=== PATIENT | female | born 1990 | race Asian ===

== ENCOUNTER 2017-05-25 17:19 | Inpatient (IN) | payer OTHER ==
[~2017-05-25] VITALS: Ht 154.9 cm; Wt 55.4 kg
[2017-05-25 17:53] LABS: UA SPECIFIC GRAVITY <=1.005 (1.005-1.035); microscopic required? YES; urine erythrocyte 1+ (NEGATIVE)
[2017-05-25 17:56] LABS: BASOPHIL % 0.2 % (0-2); PLATELET COUNT 242 x10^3mcL (130-400); RED CELL DISTRIBUTION WIDTH 12.2 % (11.5-14.5)
[2017-05-25 18:01] LABS: CALCIUM 7.9 mg/dL (8.5-10.1); CARBON DIOXIDE 21.1 mmol/L (21-32); CHLORIDE SERUM 102 mmol/L (98-107); GFR1 > 60 mL/min; GLUCOSE SERUM 127 mg/dL (74-106); POTASSIUM SERUM 3.5 mmol/L (3.5-5.1); SODIUM SERUM 137 mmol/L (136-145)
[2017-05-25 18:07] LABS: ALBUMIN 3.6 g/dL (3.4-5.0); ALKALINE PHOSPHATASE 59 U/L (46-116); ALT/SGPT 17 U/L (14-59); AST/SGOT 12 U/L (15-37); BILIRUBIN TOTAL 0.3 mg/dL (0.20-1.00); TOTAL PROTEIN, SERUM 7.3 g/dL (6.4-8.2)
[2017-05-25 18:13] LABS: AMPHETAMINE QUAL UR NONE DETECTED (NEG <=1000)
[2017-05-25 19:41] LABS: CHOLESTEROL/HDL RATIO 2.6; MAGNESIUM 1.9 mg/dL (1.8-2.4); PHOSPHOROUS 3.1 mg/dL (2.5-4.9)
[2017-05-25 19:51] LABS: T3 TOTAL 1.01 ng/mL
[2017-05-25 20:06] LABS: FREE T4 1.38 ng/dL (0.76-1.46); FREE THYROXINE INDEX 3.8 ug/dL (1.4-4.5); T4(THYROXINE) 10.5 ug/dL (4.7-13.3)
[2017-05-25 20:27] VITALS: BP 107/74
[2017-05-26 05:23] VITALS: BP 107/66
[2017-05-26 07:08] LABS: CALCIUM 7.8 mg/dL (8.5-10.1); CARBON DIOXIDE 23.8 mmol/L (21-32); CHLORIDE SERUM 107 mmol/L (98-107); CREATININE SERUM 0.7 mg/dL (0.6-1.0); GFR1 > 60 mL/min; GLUCOSE SERUM 88 mg/dL (74-106); MAGNESIUM 2.5 mg/dL (1.8-2.4); PHOSPHOROUS 2.7 mg/dL (2.5-4.9); POTASSIUM SERUM 3.8 mmol/L (3.5-5.1); SODIUM SERUM 140 mmol/L (136-145)
[2017-05-26 07:20] LABS: PLATELET COUNT 220 x10^3mcL (130-400); RED CELL DISTRIBUTION WIDTH 12.4 % (11.5-14.5)
[2017-05-26 07:23] LABS: BASOPHIL % 0 % (0-2)
[2017-05-26 09:30] VITALS: BP 97/58
[2017-05-26 13:02] VITALS: BP 102/60
[2017-05-26 16:14] VITALS: BP 101/64
[2017-05-26 21:02] VITALS: BP 95/52
[2017-05-27 05:26] VITALS: BP 98/54
[2017-05-27 06:27] LABS: BASOPHIL % 0.3 % (0-2); PLATELET COUNT 222 x10^3mcL (130-400); RED CELL DISTRIBUTION WIDTH 12.8 % (11.5-14.5)
[2017-05-27 06:41] LABS: CALCIUM 8.1 mg/dL (8.5-10.1); CARBON DIOXIDE 25.4 mmol/L (21-32); CHLORIDE SERUM 105 mmol/L (98-107); CREATININE SERUM 0.8 mg/dL (0.6-1.0); GFR1 > 60 mL/min; GLUCOSE SERUM 84 mg/dL (74-106); MAGNESIUM 2.2 mg/dL (1.8-2.4); PHOSPHOROUS 3.7 mg/dL (2.5-4.9); SODIUM SERUM 138 mmol/L (136-145)
[2017-05-27 09:04] VITALS: BP 99/63
[2017-05-27 13:18] VITALS: BP 110/68
[2017-05-27 13:20] VITALS: BP 110/68
== END 2017-05-27 13:45 | disposition home or self-care (01) | DRG 917 ==
LOC: ED 17:19 → DU 18:43
PROVIDERS: Emergency Medicine; ADMIT Student in an Organized Health Care Education/Training Program
DX: T43.222A Poisoning by selective serotonin reuptake inhibitors, intentional self-harm, initial encounter (principal); G92 Toxic encephalopathy; N17.0 Acute kidney failure with tubular necrosis; N39.0 Urinary tract infection, site not specified; F33.1 Major depressive disorder, recurrent, moderate; T43.292A Poisoning by other antidepressants, intentional self-harm, initial encounter; R56.9 Unspecified convulsions; E83.41 Hypermagnesemia; D64.9 Anemia, unspecified; Y92.009 Unspecified place in unspecified non-institutional (private) residence as the place of occurrence of the external cause
CPT/HCPCS: 83880; 84439; G0480; J0696; J1630; J2060; J3475; J3490; J7030; Q0092

== ENCOUNTER 2019-04-25 01:50 | Inpatient (IN) | payer OTHER ==
[~2019-04-25] VITALS: Ht 152.4 cm; Wt 56.2 kg
[2019-04-25] VITALS (13 sets, daily range): BP systolic 73–120; BP diastolic 32–85
[2019-04-25 02:21] LABS: microscopic required? NO
[2019-04-25 02:29] LABS: urine erythrocyte NEGATIVE (NEGATIVE)
[2019-04-25 02:39] LABS: AMPHETAMINE QUAL UR NONE DETECTED (See below)
--- NOTE | 2019-04-25 02:39 | NUR ---
PT. PRESENTS TO ER ON 515 PLACED BY YVONNE STAUFFER, PER DRAFTING CLERK, PT. TOOK 20 PILLS OF WELLBUTRIN APPROXIMATELY AT 1999, SHE WAS AT HOME, TOOK THE PILLS, AND WENT TO HER SISTERS HOUSE AND TOLD HER TO CALL 911, UPON ARRIVAL, PT. WITH EYES CLOSED, SLOW SOFT SPEECH, REFUSING TO ANSER QUESTIONS AT TIMES, PT. STATES SHE TOOK WHATEVER WAS IN HER PILL BOX, ATIVAN, WELLBUTRIN, LAMITAL, TRAZADONE, & COCAINE AND ETOH, PER MEDICS, PT. VOMITTED AND THEY CLAIM TO HAVE SEEN 20 PILLS, PT. STATES, WHEN ASKED IF SHE WANTS TO END HER LIFE, "BHARTI DONE THIS BEFORE" "WHAT DOES IT MATTER." BELONGINGS REMOVED, IN VIEW OF STAFF, WILL MONITOR, FLUIDS RUNNING, TOLERATING WELL. SAFETY PRECAUTIONS IN PLACE
[2019-04-25 02:47] LABS: BASOPHIL % 0.2 % (0-2); PLATELET COUNT 296 x10^3mcL (130-400); RED CELL DISTRIBUTION WIDTH 13.2 % (11.5-14.5)
[2019-04-25 02:52] LABS: CALCIUM 7.6 mg/dL (8.5-10.1); CARBON DIOXIDE 24.7 mmol/L (21-32); CHLORIDE SERUM 106 mmol/L (98-107); CREATININE SERUM 0.7 mg/dL (0.6-1.0); GFR1 > 60 mL/min; GLUCOSE SERUM 100 mg/dL (74-106); POTASSIUM SERUM 3.6 mmol/L (3.5-5.1); SODIUM SERUM 142 mmol/L (136-145)
[2019-04-25 03:05] LABS: ALBUMIN 3.6 g/dL (3.4-5.0); ALKALINE PHOSPHATASE 56 U/L (46-116); ALT/SGPT 13 U/L (14-59); AST/SGOT 14 U/L (15-37); BILIRUBIN TOTAL 0.2 mg/dL (0.20-1.00); TOTAL PROTEIN, SERUM 7.1 g/dL (6.4-8.2)
--- NOTE | 2019-04-25 03:09 | NUR ---
CONTACTED POISON CONTROL, SPOKE WITH SAPNA, SHE STATED WELLBUTRIN-CAN CAUSE SEIZURES UP TO 24 HOURS, ATIVAN-DROWSINESS, SLEEPING, LOW BP, TRAZADONE-DROWSINESS, SLEEPING, EKG CHANGES, HYPOTENSION, LAMITCAL-QRS WIDENING, ELEVATED HR, REPEAT EKG IN 2 HOURS, IF QRS IS OVER 120, CAN GIVE 2-2 AMP OF BICARB, IF QTC IS OVER 500, CAN GIVE MAGNESIUM, 1-2 GM, DR. PRITCHETT MADE AWARE
--- NOTE | 2019-04-25 03:32 | NUR ---
PLACED ON SEIZURE PRECAUTIONS, IN VIEW OF STAFF
--- NOTE | 2019-04-25 04:30 | NUR ---
[facility] TECH REPORTS THAT PT. WAS INSISTING OF WANTING TO GO HOME, EXPLAINED THAT SHE WAS NOT ABLE TO GO HOME, PT. THEN BEGAN TO KICKING HER LEGS, BANGING HER HEAD AGAINST THE RAIL, NOT COOPERATING, NO NOT FOLLOWING INSTRUCTIONS, PT. WAS DEMANDING TO GO HOME, DR. PRITCHETT AT BEDSIDE, NEW ORDERS OBTAINED FOR ATIVAN 1 MG IV, CARRIED OUT, PT. PULLED OUT IV DURING SITUATION, IV CATHETER INTACT, NEW ORDER FOR RESTRAINTS OBTAINED FROM DR. MULLINS ON PT. SAFETY PRECAUTIONS IN PLACE, IN VIEW OF STAFF, SEIZURE PRECAUTIONS IN PLACE,
--- NOTE | 2019-04-25 04:38 | NUR ---
PT. BANGING HEAD ON RAILS, KICKING, MOVING ARMS, REFUSING TO COOPERATE, PT.BANGED HER HEAD AGAINST THE RAIL ON LEFT CHEEK, REDNESS NOTED, MADE AWARE STAT, NO NEW ORDERS OBTAINED, WILL MONITOR, SAFETY PRECAUTIONS IN PLACE,
--- NOTE | 2019-04-25 05:31 | NUR ---
0531-PT. PRESENTS WITH FIRST WITNESSED SEIZURE, RESTRAINTS REMOVED STAT, PT. TURNED TO THE SIDE, OXYGEN APPLIED NON-REBREATHER MARIA ESTHER APPLIED, LASTING 10 SECONDS, DR. PRITCHETT MADE AWARE 0533-SEZIURE ACTIITY 3 SECONDS 0533-SEIZURE ACTIVITY 4 SECONDS 0533-SEIZURE ACTIVITY 7 SECONDS 0534-SEIZURE ACTIVITY 5 SECONDS 0535-SEIZURE ACTIVITY 5 SECONDS 0535-SEIZURE ACTIVITY 4 SECONDS 0536-SEIZURE ACTIVITY 5 SECONDS 0536-SEIZURE ACTIVITY 4 SECONDS 0539-DRPaulo AT BEDSIDE 0539-OBTAINED VERBAL ORDER FOR BICARB 1 AMP IV, 0541-OBTAINED VERBAL ORDER FOR MAGNESIUM 2 GM 0541-OBTAINED VERBAL ORDER FOR SECOND BICARB 1 AMP IV 0540-SEIZURE ACTIVITY 5 SECONDS 0541-SEZIURE ACTIVITY 4 SECONDS 0541-SEIZURE ACTIVITY 7 SECONDS 0542-NEW ORDER FOR ATIVAN 2 MG IVP 0542-SEIZURE ACTIVITY 3 SECONDS 0542-SEIZURE ACTIVITY 3 SECONDS 0543-SEIZURE ACTIVITY 3 SECONDS 0544-SEIZURE ACTIVITY 3 SECONDS 0544-SEIZURE ACTIVITY 3 SECONDS 0544-SEIZURE ACTIVITY 4 SECONDS 0545-SEIZURE ACTIVITY 5 SECONDS 0552-PT. INTUBATED RT AT BEDSIDE, DR. PRITCHETT, 7.5, 21 @ LIP, SUCCESSFUL, VOCAL CORDS VISUALIZED 0556-NEW ORDER OBTAINED FOR 2 AMPS OF BICARB 0558-NEW ORDER FOR VERSED 2 MG IVP 0550-NEW ORDER OBTAINED KEPPRA 500 MG IV 0621-SAFELY TRANSFERRED TO BED 1 0634-1 L NS IV 0635-NEW ORDER FOR FRANKLIN CATHETER 0641-TITRATED PROPOFOL TO 5 MCG/KG/MIN DUE TO BP @ 77/31 0643-RECTAL TEMP @ 102.2 0724-BP @ 82/33 MADE AWARE 0607-MAGNESIUM & KEPPRA STARTED 0617-NEW ORDER FOR PROPOFOL @ 10MCG/KG/MIN 0625-NEW ORDER FOR BICARB DRIP @ 250ML/HR 0541-MAGNESIUM 2 GM IV
--- NOTE | 2019-04-25 07:38 | NUR ---
REPORT GIVEN TO ZEYNEP PINA, RESUME CARE OF PT
--- NOTE | 2019-04-25 07:40 | NUR ---
RECIEVED REPORT FROM SONNY PINA. PT WAS BROUGHT IN FROM [facility] EARLY THIS AFTER VOMITING ABOUT 20 PILLS THE PATIENT GOT SCARED AND WENT TO HER SISTER AND TOLD HER TO CALL 911. PT WAS [id number] UPON ARRIVAL AND SLOW AND SLUGGISH TO RESPOND, BUT WAS RESPONDING APPROPRIATELY. ABOUT 0400 THE PATIENT STARTED TO PULL THINGS OFF AND GET UP QUICKLY, STATING SHE WANTS TO GO HOME. PER SONNY IT WAS HARDER FOR PT TO FOLLOW COMMANDS AND WAS RN WAS WORRIED FOR PT SAFETY. PT THEN WAS ASSISTED BACK TO BEDAND PER SILVANA DENNIS SHE WITNESSED MINI SHORT SEIZURES AND NOTIFIED DR PRITCHETT. PT WAS MOVED TO ROOM 1 AND INTUBATED. PUT COMPLETED 3L NS, WAS GIVEN RECTAL TYLENOL FOR FEVER, ON PROPOFOL FOR SEDATION AT 5MCG/KG/MIN. PT RESTING IN BED. INTUBATED, MULITPLE IV LINES ESTABLISHED, BICARB INFUSING WITHOUT SIGNS OF INFILTRATION. FRANKLIN IN PLACE WITH 500 MLS OF CLEAR YELLOW URINE, ON FULL CAFE HELPER, SEIZURE PADS IN PLACE AND I WILL CONTINUE TO MONITOR PT.
--- NOTE | 2019-04-25 07:48 | NUR ---
RT AT BEDSIDE AND PT TAKEN TO CT.
--- NOTE | 2019-04-25 07:50 | NUR ---
YOUTH SUPPORT WORKER COMPLETED BLOOD CULTURES AT BEDSIDE AT TIME OF ANTIBIOTIC ADMINISTRATION. WITNESSED BY MONET RN, ETHEL RN, AND SONNY PINA.
--- NOTE | 2019-04-25 08:06 | NUR ---
PT BACK FROM CT WITHOUT INCIDENT, PORTABLE XRAY AT BEDSIDE.
[2019-04-25 08:12] LABS: FREE T4 1.27 ng/dL (0.76-1.46); FREE THYROXINE INDEX 3.1 ug/dL (1.4-4.5); T4(THYROXINE) 8.5 ug/dL (4.7-13.3)
--- NOTE | 2019-04-25 08:12 | NUR ---
PER MD PT NEEDS TO BE STARTED ON LEVOPHED, DR REED WILL ORDER NOW.
--- NOTE | 2019-04-25 08:19 | NUR ---
CALLED PHARMACY TO BRING LEVOPHED, THEY WILL BRING "THE KIT" TYRELL
--- NOTE | 2019-04-25 08:28 | NUR ---
AT BEDSIDE; HAS TOTAL OF 6050 MLS OF URINE AND FRANKLIN BAG EMPTIED AT THIS TIME. PT ON FULL CM.
[2019-04-25 08:37] LABS: T3 TOTAL 1.07 ng/mL
--- NOTE | 2019-04-25 08:39 | NUR ---
PROPOFOL STOPPED AT THIS TIME, MD AT BEDSIDE WELL.
--- NOTE | 2019-04-25 08:41 | NUR ---
PHARMACY BROUGHT LEVOPHED AT THIS TIME, REPEAT VITAL PER MD AND THEN START IT IF THE BP IS STILL LOW.
--- NOTE | 2019-04-25 08:45 | NUR ---
LEVOPHED STARTED AT 2MCG/MIN AT THIS TIME.
--- NOTE | 2019-04-25 08:51 | NUR ---
INCREASED LEVOPHED TO 4 MCG/MIN. DR REED AT BEDSIDE.
--- NOTE | 2019-04-25 09:02 | NUR ---
RT AT BEDSIDE TO READJUST THE PLACEMENT OF THE VENT AND REPEAT ABG.
--- NOTE | 2019-04-25 09:09 | NUR ---
LEVOPHED TITRATED TO 6 MCG/MIN
--- NOTE | 2019-04-25 09:37 | NUR ---
LP PROCEDURE IN PROGRESS.
--- NOTE | 2019-04-25 09:52 | NUR ---
PUPILS DIALTED AND SLUGGISH BILATERALLY. LP COMPLETED AND MD AND EMT AT BEDSIDE
--- NOTE | 2019-04-25 10:22 | NUR ---
PT RESTING IN BED, SIDE RAILS UP FOR SAFETY. I WILL CONTINUE TO MONITOR PT.
--- NOTE | 2019-04-25 10:33 | NUR ---
REPOSITIONED NG TUBE, POSITIVE AUCULATORY PLACEMENT, MD AWARE AND WILL REORDER PLACEMENT XRAY
--- NOTE | 2019-04-25 10:42 | NUR ---
LEVOPHED TITRATED TO 8 MCG/MIN BASED OFF BP AND MAP. MD HAMPTON
--- NOTE | 2019-04-25 11:20 | NUR ---
SPOKE WITH KANWAL FROM [facility], GAVE UPDATED VITALS AND DRIPS AT THIS TIME. NO FURTHER QUESTIONS.
--- NOTE | 2019-04-25 11:24 | NUR ---
PORTABEL XRAY AT BEDSIDE
--- NOTE | 2019-04-25 11:52 | NUR ---
RT ROSARIO AT BEDSIDE, SETTINGS REMAINED THE SAME.
--- NOTE | 2019-04-25 12:05 | NUR ---
MD AT BEDSIDE AND REQUESTING TO MOVE LEVOPHED TO 10 MCG/MIN. RT AT BEDSIDE WELL ADJUSTING O2% FROM 40 TO 50 AT THIS TIME AND WILL OBTAIN ANOTHER ABG PER MD REQUEST.
--- NOTE | 2019-04-25 12:08 | NUR ---
CALLED INTO ER. PT SATURATION ON 40% WAS 88-89%. PT APPEARED STABLE. I INCREASED PT TO 50% FIO2. SATURATION 93%. FOLLOW UP ABG TO BE DONE FOR BASELINE. RN AWARE. WILL CONTINUE TO MONITOR PT.
--- NOTE | 2019-04-25 12:52 | NUR ---
PER ZENIA IN CT; THEY STILL HAVE AN ICU PT IN PROGRESS, THEY WILL COME GET THIS PATIENT NEXT.
--- NOTE | 2019-04-25 12:53 | NUR ---
SPOKE WITH MOTHER, FATHER AND BOYFRIEND; PER FAMILY PT WAS OUT DRINKING WITH CO-WORKERS LAST NIGHT AND CALLED HER SISTER TO PUT HER MEDICATIONS OUTSIDE THE FRONT DOOR AND SHE WILL COME BY AND GET THEM BECAUSE SHE FORGOT TO TAKE SOME. SISTER DID SO AT 1300 PER MOTHER (ACCORDING TO THE RING DEVICE ON FRONT PORCH) AND AT 1310; FATHER HAD A MISSED CALL FROM PT. PT THEN WALKED DOWN THE [place] FROM [facility] TO SISTERS ROOM AND BANGED ON HER DOOR TO CALL 911, MOTHER WOKE TO VOMIT AND MULITPLE PILLS ON KITCHEN FLOOR. PT MOTHER CALLED 911.
--- NOTE | 2019-04-25 13:00 | NUR ---
PT OFF THE FLOOR TO CT
--- NOTE | 2019-04-25 13:28 | NUR ---
PT BACK FROM CT
--- NOTE | 2019-04-25 13:33 | NUR ---
FAMILY AT BEDSIDE WITH PT
--- NOTE | 2019-04-25 13:34 | NUR ---
PT SATURATION WAS STILL IN THE HIGH 80'S ON 60% FIO2. PT PLACED ON 100% FIO2 AND INCREASED THE PEEP TO 8 PER MD REED. PT CURRENTLY ON AC 14 400 100% +8. SATURATION 98%. CT ANGIO TO BE DONE ON PT. PT SUCTIONED. OBTAINED SMALL THIN CREAM/WHITE SECRETIONS. CLEAR BREATH SOUNDS. ETT SECURE. AWAITING PICKUP. WILL CONTINUE TO MONITOR PT.
--- NOTE | 2019-04-25 14:09 | NUR ---
CALLED REPORT TO ALBER PINA, ALL QUESTIONS ADDRESSED AT THIS TIME
--- NOTE | 2019-04-25 14:10 | NUR ---
1AMP OF BICARB GIVEN RIGHT HAND AT THIS TIME. PER DR PRAKASH WIDENED QRS AND EKG AT BEDSIDE AT THIS TIME.
--- NOTE | 2019-04-25 14:11 | NUR ---
MAGNESIUM 2G STARTED AT THIS TIME FOR DURATION OF 20 MINS PER MEAGHAN OWUSU RN. ABG OBTAINED AT THIS TIME WELL.
--- NOTE | 2019-04-25 14:33 | NUR ---
DR REED ON LINE WITH PHARMACY
--- NOTE | 2019-04-25 14:34 | NUR ---
AT PT BEDSIDE FOR MONITORING.
--- NOTE | 2019-04-25 14:56 | NUR ---
LANDA UNABLE TO TAKE PT, CONFIRMED AND DR REED AWARE. PT ON ADVANCED PRACTICE PROFESSIONAL AND I WILL CONTINUE PT CARE AT THIS TIME.
--- NOTE | 2019-04-25 15:05 | NUR ---
2ND 100MLS BOLUS OF LIPIDS AT THIS TIME. EKG COMPLETED
[2019-04-25 15:07] LABS: ALKALINE PHOSPHATASE 47 U/L (46-116); ALT/SGPT 12 U/L (14-59); AST/SGOT 23 U/L (15-37); BILIRUBIN TOTAL 0.4 mg/dL (0.20-1.00); CARBON DIOXIDE 31.9 mmol/L (21-32); CHLORIDE SERUM 115 mmol/L (98-107); CREATININE SERUM 0.9 mg/dL (0.6-1.0); GFR1 > 60 mL/min; GLUCOSE SERUM 128 mg/dL (74-106); MAGNESIUM 3.3 mg/dL (1.8-2.4); POTASSIUM SERUM 3.4 mmol/L (3.5-5.1); SODIUM SERUM 154 mmol/L (136-145)
[2019-04-25 15:08] LABS: ALBUMIN 2.5 g/dL (3.4-5.0)
[2019-04-25 15:10] LABS: CALCIUM 5.6 mg/dL (8.5-10.1)
--- NOTE | 2019-04-25 15:10 | NUR ---
RESIDENTS AT BEDSIDE
--- NOTE | 2019-04-25 16:23 | NUR ---
DR MARTINEZ AT BEDSIDE; CHANGED PT VENT SETTING TO PRESSURE CONTROL SETTING AND WOULD LIKE AN ABG COMPLETED ON THIS SETTING IN 1 HOUR.
--- NOTE | 2019-04-25 16:43 | NUR ---
CALLED AND GAVE REPORT TO PAULETTE, OK TO MOVE PT TO ICU AT THIS TIME.
--- NOTE | 2019-04-25 16:55 | NUR ---
MARKETING PRODUCER AT BEDSIDE PRAYING WITH THE FAMILY.
--- NOTE | 2019-04-25 16:57 | NUR ---
PT MOTHER VERBALIZED PT HAS HISTORY OF VAPING. AND THAT PT IS CURRENTLY ON ZITHROMAX FOR BRONCHITIS.
--- NOTE | 2019-04-25 17:17 | NUR ---
PT CARE HANDED OVER TO PAULETTE RN IN ICU, ALL DR MARTINEZ ORDERS RELAYED; 1 AMP OF BICARB IVP; SOLUMEDROL 60MG Q6, REPORT TO PUBLIC HEALTH ABOUT VAPING, INITITATE BANANA BAG AND TO START PT ON 5MCG OF PROPOFOL TO REDUCE POTENTIAL SEZIURES AND TRY TO TITRATE LEVOPHED TO 8MCG AND NO HIGHER THAN 12MCG. VERBAL ORDERS. ALL QUESTIONS ADDRESSED AND FAMILY ASSISTED TO ICU LOBBY.
--- NOTE | 2019-04-25 17:36 | NUR ---
@1635, MD JEREZ HAD SWITCHED OVER PT TO PRESSURE CONTROL 20 RR 16 100% +5. PT TOLERATING CHANGES WELL. PT WAS THEN TRANSFERRED TO ICU AND MD JEREZ ORDERED TO LOWER PRESSURE TO 14-16 AND KEEP THE TIDAL VOLUMES 300-350. ABG WAS DRAWN. ANCHOR FAST ALEXANDRA PLACED ON PT AND ETT SECURE AT 21CM LIPLINE. PT REMAINS ETT TO VENT. PT SUCTIONED ORALLY AND THROUGH ETT. PT OBTAINING GOOD VOLUMES. WAITING FROM MD JEREZ TO READ ABG RESULTS. WILL CONTINUE TO MONITOR PT. RN AND RN CASH REGISTER REPAIRER AWARE.
--- NOTE | 2019-04-25 17:40 | NUR ---
DR. MOTTA AND MYSELF SPEAKING WITH PT'S MOTHER AT BEDSIDE IN REGARDS TO CENTRAL LINE PROCEDURE, ALL RISK AND BENEFITS EXPLAINED TO MOTHER. MOTHER IN AGREEMENT WITH CENTRAL LINE. CONSENT OBTAINED AND WITNESSED BY MYSELF.
--- NOTE | 2019-04-25 17:59 | NUR ---
LEFT A MESSAGE FOR TIRSO PENNY; INFECTION CONTROL WITH PT INFORMATION AND TO F/U WITH PUBLIC HEALTH REGARDING HISTORY OF VAPING AND NEW RESPIRATORY DIAGNOSIS PER DR JEREZ.
--- NOTE | 2019-04-25 18:00 | NUR ---
LEVO AT 7 MCG/KG/MIN AT THIS TIME, BP TRENDING UP. WILL CONTINUE TO MONITOR.
--- NOTE | 2019-04-25 18:23 | NUR ---
LEVOPHED TITRATED DOWN TO 4 MCG/KG/MIN, MAP 73. WILL CONTINUE TO MONITOR.
--- NOTE | 2019-04-25 18:46 | NUR ---
MAP 72 LEVOPHED TITRATED TO 5 MCG/MIN. PRIMARY RN MADE AWARE
--- NOTE | 2019-04-25 19:10 | NUR ---
RECEIVED REPORT FROM EULALIO PINA. ASSUMING ALL CARE
--- NOTE | 2019-04-25 19:14 | NUR ---
RECEIVED PT LAYING IN BED. PT IS INTUBATED AND SEDATED ON PROPOFOL @ 5 MCG/KG/MIN. RSS=6. PROPOFOL TURNED OFF AT THIS TIME. PT IS OBTUNDED. PUPILS WITH SLUGGISH RESPONSE TO LIGHT 5 MM BILAT. NO GAG REFLEX PRESENT. 7.5 ETT INTACT/SECURED, 21 CM @ LL. RIJ CVC IN PLACE WITH DRESSING CDI. RIGHT NGT INTACT/SECURED. EENT FREE OF DISCHARGE. BREATHING IS E/U ON VENT. VENT SETTINGS: PCV/AC MODE, RATE 18, PRESSURE 18, PEEP 8, 100% FIO2. COARSE CRACKLES NOTED TO BUL AND DIMIN TO BLL. SYMMETRICAL CHEST EXPANSION NOTED. S1/S2 HEART SOUNDS AUSCULTATED. CHEST WALL EQUAL AND SYMMETRICAL. HR 76, NIBP 95/65 MAP 72. LEVOPHED GTT INFUSING @ 5 MCG/MIN. PALPABLE PULSES X4 EXTREMITIES. SKIN IS COLD AND DRY. CAP REFILL < 3 SECS. ZOSYN INFUSING @ 100 ML/HR. RAC, LAC, RH, LH IV'S INTACT/SECURED WITH NO S/S OF INFILTRATION NOTED. PT IS NPO AT THIS TIME. ABD IS SOFT, FLAT, NONTENDER TO PALPATION. BOWEL SOUNDS HYPOACTIVE X4 QUADRANTS. NO BM NOTED. F/C IS INTACT/SECURED DRAINING VIA GRAVITY WITH EMERITA COLORED URINE. NO LABIAL EDEMA/VAGINAL DISCHARGE NOTED. SKIN IS INTACT. PT ON TURN SCHED Q2H AND PRN FOR COMFORT. FAMILY AT BEDSIDE. BED IN LOW POSITION. CALL LIGHT IN REACH. WILL CONT TO MONITOR
--- NOTE | 2019-04-25 19:15 | NUR ---
REPORT GIVEN TO SILVANA WELLINGTON AT THIS TIME. ALL QUESTIONS ANSWERED.
--- NOTE | 2019-04-25 19:30 | NUR ---
PEEP INCREASED TO 10 BY BETH RT.
--- NOTE | 2019-04-25 19:32 | NUR ---
PER ABG RESULT INCREASE THE PEEP FROM [address] IRVIN, POST VENTILATOR CHANGES ABG TO FOLLOW. SILVANA WELLINGTON MADE AWARE OF THESE CHANGES.
--- NOTE | 2019-04-25 21:30 | NUR ---
NIBP 66/40 MAP 48. LEVOPHED TITRATED TO 7 MCG/MIN
--- NOTE | 2019-04-25 22:00 | NUR ---
NIBP 122/95 MAP 100. LEVOPHED TITRATED TO 5 MCG/MIN
--- NOTE | 2019-04-25 22:00 | NUR ---
DR. LANGSTON AT BEDSIDE. UPDATED ON PT'S STATUS. PER DR. LANGSTON, ORDER TRACHEAL ASPIRATE CULTURE AND GRAM STAIN. ORDERS NOTED AND CARRIED OUT.
--- NOTE | 2019-04-25 22:15 | NUR ---
NIBP 100/71 MAP 80. LEVOPHED TITRATED TO 4 MCG/MIN
--- NOTE | 2019-04-25 22:39 | NUR ---
SPOKE TO POISON CONTROL VIA TELEPHONE. UPDATED ON PT'S CURRENT STATUS. ALL QUESTIONS/CONCERNS ADDRESSED. PER REP, RECOMMEND ORDERING EKG AT THIS TIME. WILL NOTIFY DR. HE.
--- NOTE | 2019-04-25 23:00 | NUR ---
NIBP 88/53 MAP 60. LEVOPHED TITRATED TO 5 MCG/MIN
--- NOTE | 2019-04-25 23:25 | NUR ---
RT AT BEDSIDE FOR EKG
--- NOTE | 2019-04-25 23:35 | NUR ---
X-RAY TECH AT BEDSIDE FOR KUB
--- NOTE | 2019-04-25 23:40 | NUR ---
DR. HE AND DR. SHIRLEY MADE AWARE MOST RECENT EKG SHOWS A-FIB. PER DR. SHIRLEY, CONTINUE MONITORING. NOTIFY HIM ONCE HEART RATE IS ABOVE 110.
[2019-04-26] VITALS (17 sets, daily range): BP systolic 83–113; BP diastolic 49–80; Ht 152.4 cm; Wt 56.2 kg
--- NOTE | 2019-04-26 05:00 | NUR ---
GROUND SUPPORT EQUIPMENT MECHANIC AT BEDSIDE FOR AM LAB DRAW
[2019-04-26 05:23] LABS: PLATELET COUNT 257 x10^3mcL (130-400); RED CELL DISTRIBUTION WIDTH 14.2 % (11.5-14.5)
[2019-04-26 05:41] LABS: CALCIUM 6.2 mg/dL (8.5-10.1); CHLORIDE SERUM 114 mmol/L (98-107); GFR1 > 60 mL/min; GLUCOSE SERUM 219 mg/dL (74-106); MAGNESIUM 2.1 mg/dL (1.8-2.4); PHOSPHOROUS 2.2 mg/dL (2.5-4.9); POTASSIUM SERUM 3.4 mmol/L (3.5-5.1); SODIUM SERUM 151 mmol/L (136-145)
[2019-04-26 05:43] LABS: ALBUMIN 2.2 g/dL (3.4-5.0)
--- NOTE | 2019-04-26 05:45 | NUR ---
DR. MOTTA AT BEDSIDE. UPDATED ON PT'S CURRENT STATUS. ALL QUESTIONS/CONCERNS ADDRESSED. MADE AWARE TOTAL OUTPUT FROM FRANKLIN WAS [address] MOTTA, WILL INPUT NEPHROLOGY CONSULT. AWARE OF CRITICAL LAB RESULT: WBC 32.2.
[2019-04-26 06:00] LABS: BAND NEUTROPHIL 31 % (0-10); MYELOCYTE 4 % (0-2); SEGMENTED NEUTROPHILS 63 % (37-75)
[2019-04-26 06:02] LABS: rbc morphology (normal/abnorm) NORMAL (NORMAL)
[2019-04-26 06:03] LABS: PLATELET MORPHOLOGY PLATELETS NORMAL
--- NOTE | 2019-04-26 06:10 | NUR ---
X-RAY TECH AT BEDSIDE
--- NOTE | 2019-04-26 06:45 | NUR ---
NUBP 106/75 MAP 82. LEVOPHED TITRATED TO 4 MCG/MIN
--- NOTE | 2019-04-26 07:05 | NUR ---
REPORT GIVEN TO AYDEE PINA. ALL QUESTIONS/CONCERNS ADDRESSED AT THIS TIME. ENDORSING ALL CARE
--- NOTE | 2019-04-26 07:18 | NUR ---
PROPOFOL GTT RESTARTED AT THIS TIME. SEIZURE ACTIVITY CONTINUES AT THIS TIME, MANIFESTING NONPURPOSEFUL BILATERAL ARM TWITCHING & NONPURPOSEFUL FACIAL TWITCHING. NO TONIC-CLONIC MOVEMENT NOTED THIS AM SO FAR. WILL CONITNUE TO MONITOR PT.
--- NOTE | 2019-04-26 08:29 | NUR ---
RN CALLED DR. MOTTA AT 0818 RE: FAMILY CONCERNS ABOUT THE PT'S ARMS AND FACE TWITCHING AND ABOUT CT CALLING AND ASKING IF THE SECOND HEAD CT WITHOUT CONTRAST WAS STILL DESIRED. DR. MOTTA STATED THE TWITCHING WAS LIKELY CONTINUED SEIZURE ACTIVITY D/T THE PROPOFOL BEING TURNED OFF AND THAT THE PT MIGHT NEED AN INCREASED DOSE IN [facility]. RN CALLED CT AND UPDATED THEM THAT WE DO STILL NEED THE SECOND HEAD CT WITHOUT CONTRAST PER DR. MOTTA.
--- NOTE | 2019-04-26 08:48 | NUR ---
DECREASED FIO2 TO 80% FROM 100% POST ABG RESULTS. SPO2 MAINATINED AT 100%.
--- NOTE | 2019-04-26 09:45 | NUR ---
LEVOPHED GTT TITRATED UP TO 6 MCG/KG/MIN FROM 4 MCG/KG/MIN FOR MAP 63. WILL CONTINUE TO MONITOR.
--- NOTE | 2019-04-26 10:20 | NUR ---
RETURNED WITH PT FROM HEAD CT. PT TOLERATED TRANSPORT WELL, NO EVENTS TO REPORT. WILL CONTINUE TO MONITOR.
--- NOTE | 2019-04-26 10:24 | NUR ---
SPOKE WITH SANJAY FROM [facility] AND PROVIDED UPDATES, NO FURTHER RECOMMENDATIONS AT THIS TIME. WILL CONT TO MONITOR AND FOLLOW UP.
--- NOTE | 2019-04-26 10:28 | NUR ---
TRANSFERED AND RETURED PATIENT FROM CT SCAN WITH NO INCIDENT. PATIENT TRANSFERED ON VENT. AMBU BAG AND MONITOR ON BED FOR TRANSPORT.
--- NOTE | 2019-04-26 10:30 | NUR ---
LEVOPHED GTT TITRATED DOWN TO 4 MCG/KG/MIN FROM 6 MCG/KG/MIN FOR MAP 80. WILL CONT TO MONITOR.
--- NOTE | 2019-04-26 10:30 | NUR ---
ROUTINE VENT CHECK. AIRWAY IS PATENT. PER DECREASE FIO2 PATIENT TOLERATES TO BELOW 60% THEN BEGIN TO DECREASE PEEP TOLERATED TO 5.
--- NOTE | 2019-04-26 10:35 | NUR ---
DECREASED FIO2 FROM 80% TO 65%. SPO2 MAINATINED AT 99%. WILL CONTINUE TO MONITOR.
--- NOTE | 2019-04-26 10:42 | NUR ---
DR. JEREZ IN UNIT AND UPDATED PROVIDED BY NURSING. NEW ORDERS FOR K-PHOS 30MM IV X ONCE NOW, ACCUCHECK Q4HRS WITH SLIDING SCALE, EKG, ECHO, DECADON 6MG IV Q 8HRS, AND TO TRANSFER TO [place]. ALL ORDERS READBACK AND CONFIRMED. WILL UPDATE PRIMARY RN OF THE ABOVE.
--- NOTE | 2019-04-26 10:44 | NUR ---
DR. JEREZ INFORMED SEDATION WAS TUNRED OFF BY NOC RN AT 1900 DUE TO PT BEING OBTUNDED. PER DR. JEREZ PT TO REMAIN ON PROPOFOL AT 5 MCG/KG/MIN REGARDLESS IF PT IS OBTUNDED OR NOT PT MAY OR MAY NOT BE HAVING UNDERLYING SEIZURE ACTIVITY. PRIMARY RN MADE AWARE AND I WILL INFORM NOC CHARGE TO REMIND NOC RN.
--- NOTE | 2019-04-26 10:52 | NUR ---
LEVOPHED GTT TITRATED UP TO 5 MCG/KG/MIN FROM 4 MCG/KG/MIN FOR MAP 61. WILL CONT TO MONITOR AND ASSESS.
--- NOTE | 2019-04-26 11:50 | NUR ---
DR. JEREZ INSERTED ARTERIAL LINE; PT TOLERATED PROCEDURE WELL. TIMEOUT WAS COMPLETED PRIOR TO PROCEDURE.
--- NOTE | 2019-04-26 12:33 | NUR ---
SUSTAINABLE LANDSCAPE ARCHITECT AT BEDSIDE FOR ECHO.
--- NOTE | 2019-04-26 13:11 | NUR ---
ART LINE MAP NOTED 76, LEVOPHED TITRATED TO 2 MCG/KG/MIN AND PROP TIRATED TO 7MCG/KG/MIN NONPURPOSEFUL TWITCHING NOTED TO PT'S HEAD AND LEFT HAND. WILL NOTIFY PRIMARY RN OF THE CHANGES.
--- NOTE | 2019-04-26 13:22 | NUR ---
SPOKE WITH BUTTON BROACHER CHRISTY FROM [facility] AND PROIVED HER UPDATES. STATED SHE WILL SPEAK WITH HER PHYSICIANS AND CALL US BACK.
--- NOTE | 2019-04-26 13:58 | NUR ---
LEVOPHED GTT TITRATED DOWN TO 1 MCG/MIN FROM 2 MCG/MIN FOR ARTERIAL LINE MAP 77.
--- NOTE | 2019-04-26 14:02 | NUR ---
SPOKE WITH STEVE AT [facility] AND STATED THEY HAVE PARAMATERS FOR TRANSFERING PT'S. STATED THE FIO2 NEEDS TO BE 50% OR BELOW. PRIMARY RN AND RT MADE AWARE.
--- NOTE | 2019-04-26 14:02 | NUR ---
PROPOFOL INCREASED TO 10 MCG/KG/MIN FOR CONTINUED SEIZURE-LIKE ACTIVITY.
--- NOTE | 2019-04-26 14:04 | NUR ---
PROPOFOL INCREASED TO 8 MCG/KG/MIN FROM 7 MCG/KG/MIN FOR INCREASING SEIZURE-LIKE TWITCHING OF FACE & ARMS OF PATIENT.
--- NOTE | 2019-04-26 14:05 | NUR ---
DECREASED FIO2 FROM 65% TO 50%. SPO2 MAINTAINED AT 99-100%. WILL CONTINUE TO MONITOR.
--- NOTE | 2019-04-26 14:40 | NUR ---
PROPOFOL INCREASED TO 10 MCG/KG/MIN FOR SEIZURE-LIKE ACTIVITY.
--- NOTE | 2019-04-26 14:53 | NUR ---
PT GIVEN PRN DOSE OF 2MG VERSED FOR FACIAL TWITCHING AND UPPER BODY TWITCHING SEIZURE LIKE ACTIVITY. WILL CONTINUE TO MONITOR.
--- NOTE | 2019-04-26 15:38 | NUR ---
DR. JUAREZ AT BEDSIDE TO SEE PT. QUESTIONS ANSWERED, UPDATES PROVIDED. DR. JUAREZ REQUESTED ADDING A K-RIDER IF K+ IS <3.5 AND REQUESTING THAT BMP'S BE DRAWN Q8H INSTEAD OF THE CURRENT Q24H. WILL CARRY OUT NEW ORDERS.
--- NOTE | 2019-04-26 16:03 | NUR ---
DECRASED FIO2 FROM 50% TO 45% AND DECREASED PEEP FROM 10 TO 5. SPO2 MAINTAINED 98-100%. WILL CONTINUE TO MONITOR.
--- NOTE | 2019-04-26 16:21 | NUR ---
RECIEVED CALL FROM [facility] AND PROVIDED THEM WITH PT UPDATES INCLUDING FIO2 NOW 45% WITH A PEEP OF 5, LEVO WEANED OFF WITH CURRENT ARTERIAL LINE MAP OF 72, AND PROPOFOL INCREASED TO 15 MCG/KG/MIN DUE TO INCREASE SZ ACTIVITY. ANTICIPATE CALL BACK FOR UPDATES ON TRANSFER.
--- NOTE | 2019-04-26 17:28 | NUR ---
SPOKE WITH CHELSI AT [facility] AND ASKED FOR TRANSFER STATUS UPDATE AND STATED IT LOOKS LIKE PT WILL BE ACCEPTED TO [facility] THEY ARE JUST WAITING ON AN ACCEPTING MD.
--- NOTE | 2019-04-26 18:43 | NUR ---
PROPOFOL GTT TITRATED UP TO 17 MCG/KG/MIN FOR INCREASING SEIZURE ACTIVITY FROM 15 MCG/KG/MIN. WILL CONT TO MONITOR.
--- NOTE | 2019-04-26 18:45 | NUR ---
RECIEVED CALL FROM STEVE AT [facility] AND STATED PT HAS BEEN [facility]. PT WILL BE TRANSFERED AFTER 1999 TONIGHT VIA CCT. PT HAS BEEN ACCEPTED BY DR. NEVAREZ AT [facility] NUMBER FOR REPORT IS [phone] AND WILL CALL BACK WITH ETA FOR MEDICAL OFFICE REPRESENTATIVE. FAMILY AND PRIMARY RN MADE AWARE OF THE ABOVE.
[2019-04-26] MEDS ORDERED: ZOS3PM IV (19:01)
[2019-04-26] MEDS ORDERED: LEVI IV (19:03)
[2019-04-26] MEDS ORDERED: PROPOFOL IV (19:07)
[2019-04-26] MEDS ORDERED: KEPPRA1000 M1 IV (19:08)
[2019-04-26] MEDS ORDERED: [UNRECOGNIZED DRUG - CODE] IV (19:09)
[2019-04-26] MEDS ORDERED: DEXAMETHASONE4 MG/ML IV (19:12)
[2019-04-26] MEDS ORDERED: PROTONIX40 MG IV (19:14)
[2019-04-26] MEDS ORDERED: NATURE'S BLEND F1 MG PO (19:16)
[2019-04-26] MEDS ORDERED: B-1100 MG PO (19:16)
--- NOTE | 2019-04-26 19:20 | NUR ---
REC'D REPORT FROM AYDEE PINA TO [facility]UME CARE. PT INTUBATED AND SEDATED ON PROPOFOL 17 MCG/KG/MIN WITH RSS 6. PUPILS 6MM FIXED. 7.5 ETT, 21 CM @ LL SECURED. TRACHEA MIDLINE. NO JVD NOTED. RIJ CVC INTACT, PORTS PATENT, DSG CDI. R NARE NGT IN PLACE. ETT TO VENT: PC MODE RATE 18, PEEP 5, FIO2 40%. CHEST RISE EQUAL AND SYMMETRICAL. LUNG SOUNDS CLEAR BUL, DIM BASES. CHEST WALL STABLE. NO S/SX OF CP. R FEMORAL ART LINE IN PLACE. 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 BP 93/58 MAP 70, HR 81. PULSES PALPABLE X4. CAP REFILL < 3 SECS. BUE 1+ PITTING EDEMA NOTED. IVF NS INFUSING @ 100ML/HR. ABD FLAT, SOFT, NONTENDER TO TOUCH. BOWEL SOUNDS HYPOACTIVE. NO S/SX OF N/V/D. F/C INTACT AND DRAINING VIA GRAVITY YELLOW URINE. NO VAGINAL BLEEDING OR DISCHARGE NOTED. SKIN INTACT. WARM DRY TO TOUCH. NO MOTOR RESPONSE. PASSIVE ROM X4. TURNED AND REPOSITIONED Q2H FOR PRESSURE RELIEF. SEIZURE PRECAUTIONS IN PLACE. NO SEIZURE ACTIVITY AT THIS TIME. HOB KEPT ELEVATED. ALL NEEDS MET AT THIS TIME. WILL CONTINUE TO MONITOR.
--- NOTE | 2019-04-26 20:35 | NUR ---
REPORT GIVEN TO PHILOMENA PINA AT [facility], ALL QUESTIONS AND CONCERNS ADDRESSED. CALL BACK NUMBER PROVIDED.
--- NOTE | 2019-04-26 21:12 | NUR ---
CALLED [facility] FOR UPDATES ON TRANSPORT, DIRECTED FROM THEIR CHARGE NURSE TO BED CONTROL AND LEFT MESSAGE.
[2019-04-26 22:14] LABS: CALCIUM 6.9 mg/dL (8.5-10.1); CARBON DIOXIDE 26.2 mmol/L (21-32); CHLORIDE SERUM 111 mmol/L (98-107); CREATININE SERUM 0.7 mg/dL (0.6-1.0); GFR1 > 60 mL/min; GLUCOSE SERUM 126 mg/dL (74-106); POTASSIUM SERUM 3.6 mmol/L (3.5-5.1); SODIUM SERUM 145 mmol/L (136-145)
[2019-04-27 00:35] VITALS: BP 105/67
--- NOTE | 2019-04-27 01:00 | NUR ---
PT TRANSFERRED TO [facility] AT THIS TIME VIA [facility]. LASHONDA PINA, DR COY ([address]), AND 2 MEDICAL SUPPLY TECHNICIAN AT BEDSIDE. REPORT GIVEN TO LASHONDA PINA AND DR COY. ALL QUESTIONS AND CONCERNS ADDRESSED. STAT EKG DONE PER REQUEST OF DR COY. EKG READ BY DR COY SHOWING SINUS RHYTHM. NO ACUTE CHANGES. ALL BELONGINGS TAKEN BY FAMILY.
== END 2019-04-27 01:00 | disposition short-term general hospital (02) | DRG 917 ==
LOC: ED 01:50 → IC 15:01
PROVIDERS: Emergency Medicine; Internal Medicine Nephrology; Specialist; ADMIT Internal Medicine
PROC: 02HV33Z Insertion of Infusion Device into Superior Vena Cava, Percutaneous Approach (ICD-10-PCS; principal; 2019-04-25)
PROC: B548ZZA Ultrasonography of Superior Vena Cava, Guidance (ICD-10-PCS; 2019-04-25)
PROC: 5A1945Z Respiratory Ventilation, 24-96 Consecutive Hours (ICD-10-PCS; 2019-04-25)
PROC: 0BH17EZ Insertion of Endotracheal Airway into Trachea, Via Natural or Artificial Opening (ICD-10-PCS; 2019-04-25)
PROC: 04HY32Z Insertion of Monitoring Device into Lower Artery, Percutaneous Approach (ICD-10-PCS; 2019-04-26)
DX: T42.6X2A Poisoning by other antiepileptic and sedative-hypnotic drugs, intentional self-harm, initial encounter (principal); G92 Toxic encephalopathy; J69.0 Pneumonitis due to inhalation of food and vomit; A41.9 Sepsis, unspecified organism; J96.01 Acute respiratory failure with hypoxia; R65.21 Severe sepsis with septic shock; G93.1 Anoxic brain damage, not elsewhere classified; E87.0 Hyperosmolality and hypernatremia; I47.2 Ventricular tachycardia; F32.9 Major depressive disorder, single episode, unspecified; F17.210 Nicotine dependence, cigarettes, uncomplicated; F10.10 Alcohol abuse, uncomplicated; Y90.9 Presence of alcohol in blood, level not specified; R94.31 Abnormal electrocardiogram [ECG] [EKG]; E83.51 Hypocalcemia; F12.90 Cannabis use, unspecified, uncomplicated; F14.90 Cocaine use, unspecified, uncomplicated; T42.4X2A Poisoning by benzodiazepines, intentional self-harm, initial encounter; Y92.89 Other specified places as the place of occurrence of the external cause; Z91.5 Personal history of self-harm; Z78.1 Physical restraint status
CPT/HCPCS: 36556; 36600; 82962; 84439; 87804; A4628; C9113; G0378; G0480; J0696; J1100; J1630; J1642; J1953; J2001; J2060; J2250; J2543; J2704; J3475; J3480; J3490; J7030; J7040; J7060; Q0092; Q9967